=== PATIENT | female | born 1985 | race Caucasian/White ===

== ENCOUNTER → 2018-04-02 | Outpatient (CLI) | payer BC, OTHER ==
[~2018-04-02] MED LIST: METF500 PO; MULVITMINE PO
== END | disposition home or self-care (01) ==
LOC: LAB SHORT 12:15 → LAB 12:15
DX: N89.8 Other specified noninflammatory disorders of vagina (principal); R30.0 Dysuria
CPT/HCPCS: 87070; 87077; 87086; 87186; 87205

== ENCOUNTER 2018-09-19 22:06 | Inpatient (IN) | payer BC, OTHER ==
[~2018-09-19] VITALS: Ht 170.2 cm; Wt 88.6 kg
[2018-09-20 00:37] LABS: BASOPHILS ABSOLUTE AUTO 0.03 K/mm3 (0.00-0.23); BASOPHILS PERCENT AUTO 0 % (0-2); EOSINOPHILS ABSOLUTE AUTO 0.04 K/mm3 (0.00-0.68); EOSINOPHILS PERCENT AUTO 0 % (0-6); Hematocrit 34.3 % (33.0-51.0); Hemoglobin 11.4 g/dL (11.5-16.0); IMMATURE GRAN ABSOLUTE AUTO 0.12 K/mm3 (0.00-0.10); IMMATURE GRAN PERCENT AUTO 1 % (0-1); LYMPHOCYTES ABSOLUTE AUTO 3.64 K/mm3 (0.84-5.20); LYMPHOCYTES PERCENT AUTO 30 % (21-46); MONOCYTES ABSOLUTE AUTO 0.54 K/mm3 (0.16-1.47); MONOCYTES PERCENT AUTO 4 % (4-13); Mean Corpuscular HGB 28.1 pg (26.0-34.0); Mean Corpuscular HGB Conc 33.2 g/dL (31.5-36.5); Mean Corpuscular Volume 85 fL (80-100); Mean Platelet Volume 10.7 fL (9.1-12.4); NEUTROPHILS ABSOLUTE AUTO 7.97 K/mm3 (1.96-9.15); NEUTROPHILS PERCENT AUTO 65 % (41-73); Platelet Count 185 K/mm3 (150-400); RDW Coefficient Variation 12.9 % (11.7-14.2); RDW Standard Deviation 38.9 fL (35.1-46.3); Red Blood Cell Count 4.06 M/mm3 (3.80-5.20); White Blood Cell Count 12.34 K/mm3 (4.00-11.30)
--- NOTE | 2018-09-20 19:33 | NUR ---
REPORT TO JAZZ RUELAS
[2018-09-21 05:31] LABS: BASOPHILS ABSOLUTE AUTO 0.03 K/mm3 (0.00-0.23); BASOPHILS PERCENT AUTO 0 % (0-2); EOSINOPHILS ABSOLUTE AUTO 0.06 K/mm3 (0.00-0.68); EOSINOPHILS PERCENT AUTO 0 % (0-6); Hematocrit 32.3 % (33.0-51.0); Hemoglobin 10.6 g/dL (11.5-16.0); IMMATURE GRAN ABSOLUTE AUTO 0.12 K/mm3 (0.00-0.10); IMMATURE GRAN PERCENT AUTO 1 % (0-1); LYMPHOCYTES ABSOLUTE AUTO 3.68 K/mm3 (0.84-5.20); LYMPHOCYTES PERCENT AUTO 26 % (21-46); MONOCYTES ABSOLUTE AUTO 0.72 K/mm3 (0.16-1.47); MONOCYTES PERCENT AUTO 5 % (4-13); Mean Corpuscular HGB 28.1 pg (26.0-34.0); Mean Corpuscular HGB Conc 32.8 g/dL (31.5-36.5); Mean Corpuscular Volume 86 fL (80-100); Mean Platelet Volume 10.6 fL (9.1-12.4); NEUTROPHILS ABSOLUTE AUTO 9.84 K/mm3 (1.96-9.15); NEUTROPHILS PERCENT AUTO 68 % (41-73); Platelet Count 155 K/mm3 (150-400); RDW Coefficient Variation 13.1 % (11.7-14.2); RDW Standard Deviation 39.9 fL (35.1-46.3); Red Blood Cell Count 3.77 M/mm3 (3.80-5.20); White Blood Cell Count 14.45 K/mm3 (4.00-11.30)
--- NOTE | 2018-09-21 08:51 | NUR ---
rn offened fob, he was on phone and wanting to have mom leave [place]. rn jokingly reported it was about mom and when mom wants to leave. (rn was just starting assessment and didnt know anythig about how feeds or how mom felt anything was going) he was offened and felt like we didnt care how he felt. they are not wanting to have their other kids spend alot of time in here, one child didnt do well with being here yesterday mom reported. on dads 3rd phone called to mom, rn offered that when mom and baby ready could call and have dad meet us at the door, dad is offened again that rn would not want him in the building. that was not how i offered it. i wanted to make it easy for him. offered to mom to switch patients if he wanted a new nurse so he felt comfortable coming in the building, DR parsons notifed of situation
--- NOTE | 2018-09-21 10:42 | NUR ---
dc instructions gone over with pt, hemal understanding, waiting for dr hoskins to come to discharge pt. ppfu made. mom waiting for dad to come in so they can get the middle names correctly. mom wants flu vaccine
--- NOTE | 2018-09-21 12:57 | NUR ---
ALL TEACHING DONE, BANDS MATCHED, FOB AND KIDS AT BEDSIDE, CART LOADED UP AND READY TO GO. MOM BABY. PT AND FOB ARE AWARE ALL STUFF OF PAPER IS IN THE FOLDER. PPFU MADE FOR TOMORROW. PT TO CALL WHEN READY TO WALK OUT
--- NOTE | 2018-09-21 13:20 | NUR ---
DC HOME, DENIES ANY QUESTIONS, TO RETURN 24 HRS FOR PPFU. ENCOURAGED TO CALL IF HAS ANY QUESTIONS
== END 2018-09-21 13:15 | disposition home or self-care (01) | DRG 807 ==
LOC: OBS 22:06 → BC 22:06 → OBS 23:57 → BC 09-20
PROVIDERS: ADMIT Obstetrics & Gynecology
PROC: 10E0XZZ Delivery of Products of Conception, External Approach (ICD-10-PCS; principal; 2018-09-20)
PROC: 10907ZC Drainage of Amniotic Fluid, Therapeutic from Products of Conception, Via Natural or Artificial Opening (ICD-10-PCS; 2018-09-20)
DX: O80 Encounter for full-term uncomplicated delivery (principal); Z37.0 Single live birth; Z3A.39 39 weeks gestation of pregnancy
CPT/HCPCS: 36415; 59025; 85025; 90686; 99212; J1885; J2590; J7120

== ENCOUNTER → 2022-04-18 | Outpatient (CLI) | payer BC, OTHER | END | disposition home or self-care (01) | LOC: LAB SHORT 16:37 → LAB 16:37 | PROVIDERS: Obstetrics & Gynecology | DX: Z12.4 Encounter for screening for malignant neoplasm of cervix (principal) | CPT/HCPCS: G0123 ==

== ENCOUNTER → 2022-09-04 | Outpatient (CLI) | payer BC, OTHER | END | disposition home or self-care (01) | LOC: LAB SHORT 17:20 | DX: M54.50 Low back pain, unspecified (principal); R30.0 Dysuria | CPT/HCPCS: 87077; 87086; 87186 ==